=== PATIENT | female | born 1965 | race Two or more races ===

== ENCOUNTER 2020-12-12 07:00 | Day surgery (SDC) | payer OTHER | END 2020-12-12 17:46 | disposition home or self-care (01) | LOC: CIR.AMB 07:00 | PROVIDERS: ATTEND Obstetrics & Gynecology | DX: N84.0 Polyp of corpus uteri (principal); Z20.822 Contact with and (suspected) exposure to COVID-19 ==

== ENCOUNTER 2024-05-22 07:23 | Outpatient (CLI) | payer OTHER | END 2024-05-22 07:36 | disposition home or self-care (01) | LOC: RX STUDY 07:23 | PROVIDERS: ATTEND Internal Medicine Hematology & Oncology | DX: R13.19 Other dysphagia (principal); K31.84 Gastroparesis; K90.0 Celiac disease ==